=== PATIENT | female | born 1945 | race Caucasian/White ===

== ENCOUNTER 2020-12-15 15:32 | Emergency (ER) | payer MEDICARE, BC, OTHER ==
[2020-12-15] MEDS ORDERED: Sodium Chloride 0.9% 10 ML Syringe FLUSH PRN (16:24)
[2020-12-15] MEDS: Sodium Chloride 0.9% 2.5 ML Syringe FLUSH PRN ×2 (16:37→16:52)
[2020-12-15] MEDS ORDERED: diphenhydrAMINE 50 MG/ML SDV IVPUSH ONE (16:55)
[2020-12-15] MEDS ORDERED: methylPREDNISolone Sodium Succinate 125 MG/2 ML SDV IVPUSH ONE (16:55)
[2020-12-15 17:11] LABS: CARBON DIOXIDE,CO2 32.5 mmol/L (21.0-32.0); POTASSIUM,K 3.7 mmol/L (3.5-5.1)
[2020-12-15] MEDS ORDERED: Sodium Chloride 0.9% 1,000 ML IV ONE (17:35)
--- NOTE | 2020-12-15 17:52 | CT ---
Indication: Left lower quadrant pain Technique: Noncontrast CT abdomen and pelvis Please note that all CT scans at this facility use dose modulation, iterative reconstruction, and/or weight-based dosing when appropriate to reduce radiation dose to as low as reasonably achievable. Comparison: None Findings: Lung bases clear. Dense vascular calcifications. No intrahepatic mass. Somewhat nodular contour of the liver. Layering densities in the gallbladder. No biliary obstruction. Thickening of the adrenal glands. No hydronephrosis or renal stone. Spleen normal. Normal pancreas. Several subcentimeter retroperitoneal lymph nodes, likely of doubtful significance. The uterus is normal. No adnexal mass. Sigmoid diverticulosis. Faint stranding densities located within the posterior pelvic fat. No abscess or free fluid. No free air. No fracture. Impression: Sigmoid diverticulosis with faint ill-defined densities within the posterior pelvic fat suggesting mild sigmoid diverticulitis. Mild cirrhotic liver suspected. Cholelithiasis. Please note that all CT scans at this facility use dose modulation, iterative reconstruction, and/or weight-based dosing when appropriate to reduce radiation dose to as low as reasonably achievable. Dictated by Rodri Marks MD @ 12/15/2020 5:51:16 PM (Electronically Signed)
[2020-12-15] MEDS ORDERED: Ciprofloxacin 500 MG Tab PO STA (18:40)
[2020-12-15] MEDS ORDERED: metroNIDAZOLE 250 MG Tab PO ONE (18:40)
--- NOTE | 2020-12-15 19:07 | EDM.PDOC ---
ED HPI GENERAL MEDICAL PROBLEM - General Chief Complaint: Gastrointestinal Problem Stated Complaint: BOWEL ISSUES Time Seen by Provider: 12/15/20 16:07 Source of Information: Reports: Patient History Limitations: Reports: No Limitations - History of Present Illness INITIAL COMMENTS - FREE TEXT/NARRATIVE: HISTORY AND PHYSICAL: History of present illness: Patient is a 75-year-old female who presents emergency room today with concern of lower abdominal pain and off-and-on diarrhea and constipation over the past 3 days. Patient states her symptoms initially started as constipation but then started transitioning to watery/slimy diarrhea and states that she is having multiple episodes of this today. Patient denies any blood in her stool. Patient states she is having lower abdominal cramping associated with the diarrhea. Patient denies any abdominal surgeries. Patient does note that she feels hungry but states that she gets super bloated and gassy feeling if she eats so has not been drinking water appropriately and states that she does feel dehydrated. Patient states she does have a history of COPD, coronary artery disease status post stent, and hypertension. Patient denies any other symptoms or concerns. Patient denies fever, chills, chest pain, shortness of breath, or cough. Denies headache, neck stiff ness, change in vision, syncope, or near syncope. Denies nausea, vomiting, or dysuria. Has not noted any blood in urine or stool. Review of systems: As per history of present illness and below otherwise all systems reviewed and negative. Past medical history: As per history of present illness and as reviewed below otherwise noncontributory. Surgical history: As per history of present illness and as reviewed below otherwise noncontributory. Social history: See social history for further information Family history: As per history of present illness and as reviewed below otherwise noncontributory. Physical exam: General: Patient is alert, oriented, and in no acute distress. Patient sitting comfortably on exam table. Vitals stable and reviewed by me HEENT: Atraumatic, normocephalic, pupils equal and reactive bilaterally, negative for conjunctival pallor or scleral icterus, mucous membranes dry, TMs normal bilaterally, throat clear, neck supple, nontender, trachea midline. No drooling or trismus noted. No meningeal signs. No hot potato voice noted. Lungs: Clear to auscultation, breath sounds equal bilaterally, chest nontender. Heart: S1S2, regular rate and rhythm without overt murmur Abdomen: Soft, nondistended, mild lower abd tenderness. Negative for masses or hepatosplenomegaly. Negative for costovertebral tenderness. Pelvis: Stable nontender. Genitourinary: Deferred. Rectal: Deferred. Skin: Intact, warm, dry. No lesions or rashes noted. Extremities: Atraumatic, negative for cords or calf pain. Neurovascular unremarkable. Neuro: Awake, alert, oriented. Cranial nerves II through XII unremarkable. Cerebellum unremarkable. Motor and sensory unremarkable throughout. Exam nonfocal. Notes: Patient is a 75 year old who presents emergency room today with concern of constipation and intermittent diarrhea, nonbloody, and lower abdominal cramping/discomfort over the past 2 to 3 days. Upon arrival to the ED, patient is vitally stable and well-appearing on exam but does have a dry mouth and mild lower abdominal tenderness. Will obtain basic lab work, and abdominal pelvic CT scan without contrast. Patient does have an allergy to iodine. We will also obtain stool studies CBC shows mild decrease in red blood cells at 3.75, and hemoglobin of 11.5, and hematocrit 35.1, otherwise CBC unremarkable. CMP does show an elevation of creatinine at 1.9,(prior on file 1.2) BUN 35, and carbon dioxide of 32.5. Urinalysis does show trace protein, positive leukocyte Estrace with 1-3 red blood cells, 1-3 white blood cells, and rare bacteria. C. difficile is negative. Pending remainder stool send out Abdominal pelvic CT scan without contrast shows sigmoid diverticulosis with ill- defined density within the posterior pelvic fat suggesting mild sigmoid diverticulitis. Mild cirrhotic liver suspected. Cholelithiasis. All incidental findings of imaging today discussed with patient the importance to have this followed up with a primary care provider at a later date. Upon reevaluation of patient, she remains vitally stable and comfortable throughout stay in ED. Admission for observation was offered to patient but she declines at this time. All risks versus benefits discussed with patient and expresses understanding. Strict return precautions thoroughly discussed with patient. Discussed importance for follow-up with a primary care provider. Voices understanding and is agreeable to plan of care. Denies any further questions or concerns at this time. Diagnostics: CBC, CMP, lipase, UA, abdominal pelvic CT without contrast (patient allergy to iodine) stool culture/Shiga, ova and parasite, C. difficile Therapeutics: Normal saline, ciprofloxacin, metronidazole Prescription: Ciprofloxacin, metronidazole Impression: Diverticulitis Dehydration Abnormal renal function testing Plan: 1. Take medication as prescribed. You can alternate ibuprofen and Tylenol as directed for pain and discomfort. 2. Follow-up with primary care provider as discussed. Return to the ED as needed and as discussed. Definitive disposition and diagnosis as appropriate pending reevaluation and review of above. Abdomen Pain Score (Numeric/FACES): 6 - Related Data Allergies Allergy/AdvReac Type Severity Reaction Status Date / Time iodine Allergy unknown Verified 02/20/14 09:53 loratadine [From Claritin] Allergy unknown Verified 02/20/14 09:53 Home Meds: Home Meds Ciprofloxacin [Ciprofloxacin HCl] 500 mg PO BID 14 Days #28 tab 12/15/20 [Rx] metroNIDAZOLE [Flagyl] 500 mg PO Q8H 14 Days #42 tab 12/15/20 [Rx] Past Medical History Cardiovascular History: Reports: Angina, Hypertension Respiratory History: Reports: COPD Social & Family History - Tobacco Use Tobacco Use Status *Q: Former Tobacco User Used Tobacco, but Quit: Yes Month/Year Tobacco Last Used: - Caffeine Use Caffeine Use: Reports: None - Recreational Drug Use Recreational Drug Use: No ED ROS GENERAL - Review of Systems Review Of Systems: Comprehensive ROS is negative, except as noted in HPI. ED EXAM, GENERAL - Physical Exam Exam: See Below (See dictation) Course - Vital Signs Last Recorded V/S: Last Vital Signs Temp 95.9 F L 12/15/20 19:42 Pulse 53 L 12/15/20 19:42 Resp 16 12/15/20 19:42 BP 116/52 L 12/15/20 19:42 Pulse Ox 94 L 12/15/20 19:42 - Orders/Labs/Meds Orders: Active Orders 24 hr Category Date Time Status CULTURE URINE [MREF] Stat Lab 12/15/20 18:22 Received OVA & PARASITES BY IMMUNOASSAY [MREF] Stat Lab 12/15/20 17:02 Received STOOL CULTURE/SHIGA TOXIN [MREF] Stat Lab 12/15/20 17:02 Received Saline Lock Insert [OM.PC] Stat Oth 12/15/20 16:24 Ordered Labs: Laboratory Tests 09/06/21 09/06/21 09/06/21 Range/Units 16:40 16:40 17:02 WBC 6.23 (4.0-11.0) K/uL RBC 3.75 L (4.30-5.90) M/uL Hgb 11.5 L (12.0-16.0) g/dL Hct 35.1 L (36.0-46.0) % MCV 93.6 (80.0-98.0) fL MCH 30.7 (27.0-32.0) pg MCHC 32.8 (31.0-37.0) g/dL RDW Std Deviation 54.4 (28.0-62.0) fl RDW Coeff of Alena 16 H (11.0-15.0) % Plt Count 224 (150-400) K/uL MPV 9.70 (7.40-12.00) fL Neut % (Auto) 64.0 (48.0-80.0) % Lymph % (Auto) 23.8 (16.0-40.0) % [place] % (Auto) 9.3 (0.0-15.0) % Eos % (Auto) 2.7 (0.0-7.0) % Baso % (Auto) 0.2 (0.0-1.5) % Neut # (Auto) 4.0 (1.4-5.7) K/uL Lymph # (Auto) 1.5 (0.6-2.4) K/uL [place] # (Auto) 0.6 (0.0-0.8) K/uL Eos # (Auto) 0.2 (0.0-0.7) K/uL Baso # (Auto) 0.0 (0.0-0.1) K/uL Nucleated RBC % 0.0 /100WBC Nucleated RBCs # 0 K/uL Sodium 137 (136-145) mmol/L Potassium 3.7 (3.5-5.1) mmol/L Chloride 99 (98-107) mmol/L Carbon Dioxide 32.5 H (21.0-32.0) mmol/L BUN 35 H (7.0-18.0) mg/dL Creatinine 1.9 H (0.6-1.0) mg/dL Est Cr Clr Drug Dosing 20.86 mL/min Estimated GFR (MDRD) 25.9 ml/min Glucose 100 (74-106) mg/dL Calcium 9.1 (8.5-10.1) mg/dL Total Bilirubin 0.6 (0.2-1.0) mg/dL AST 25 (15-37) IU/L ALT 18 (14-63) IU/L Alkaline Phosphatase 64 (46-116) U/L Total Protein 8.0 (6.4-8.2) g/dL Albumin 3.5 (3.4-5.0) g/dL Globulin 4.5 H (2.6-4.0) g/dL Albumin/Globulin Ratio 0.8 L (0.9-1.6) Lipase 161 (73-393) U/L Urine Color Urine Appearance Urine pH (5.0-8.0) Ur Specific [place] (1.001-1.035) Urine Protein (NEGATIVE) mg/dL Urine Glucose (UA) (NEGATIVE) mg/dL Urine Ketones (NEGATIVE) mg/dL Urine Occult Blood (NEGATIVE) Urine Nitrite (NEGATIVE) Urine Bilirubin (NEGATIVE) Urine Urobilinogen (<2.0) EU/dL Ur Leukocyte Esterase (NEGATIVE) Urine RBC (0-2/HPF) Urine WBC (0-5/HPF) Ur Epithelial Cells (NONE-FEW) Urine Bacteria (NEGATIVE) SARS-CoV-2 RNA (OLIVIA) NEGATIVE (NEGATIVE) 12/15/20 Range/Units 18:22 WBC (4.0-11.0) K/uL RBC (4.30-5.90) M/uL Hgb (12.0-16.0) g/dL Hct (36.0-46.0) % MCV (80.0-98.0) fL MCH (27.0-32.0) pg MCHC (31.0-37.0) g/dL RDW Std Deviation (28.0-62.0) fl RDW Coeff of Alena (11.0-15.0) % Plt Count (150-400) K/uL MPV (7.40-12.00) fL Neut % (Auto) (48.0-80.0) % Lymph % (Auto) (16.0-40.0) % [place] % (Auto) (0.0-15.0) % Eos % (Auto) (0.0-7.0) % Baso % (Auto) (0.0-1.5) % Neut # (Auto) (1.4-5.7) K/uL Lymph # (Auto) (0.6-2.4) K/uL [place] # (Auto) (0.0-0.8) K/uL Eos # (Auto) (0.0-0.7) K/uL Baso # (Auto) (0.0-0.1) K/uL Nucleated RBC % /100WBC Nucleated RBCs # K/uL Sodium (136-145) mmol/L Potassium (3.5-5.1) mmol/L Chloride (98-107) mmol/L Carbon Dioxide (21.0-32.0) mmol/L BUN (7.0-18.0) mg/dL Creatinine (0.6-1.0) mg/dL Est Cr Clr Drug Dosing mL/min Estimated GFR (MDRD) ml/min Glucose (74-106) mg/dL Calcium (8.5-10.1) mg/dL Total Bilirubin (0.2-1.0) mg/dL AST (15-37) IU/L ALT (14-63) IU/L Alkaline Phosphatase (46-116) U/L Total Protein (6.4-8.2) g/dL Albumin (3.4-5.0) g/dL Globulin (2.6-4.0) g/dL Albumin/Globulin Ratio (0.9-1.6) Lipase (73-393) U/L Urine Color YELLOW Urine Appearance SLT CLOUDY Urine pH 7.0 (5.0-8.0) Ur Specific [place] 1.015 (1.001-1.035) Urine Protein TRACE H (NEGATIVE) mg/dL Urine Glucose (UA) NEGATIVE (NEGATIVE) mg/dL Urine Ketones NEGATIVE (NEGATIVE) mg/dL Urine Occult Blood TRACE-INTACT H (NEGATIVE) Urine Nitrite NEGATIVE (NEGATIVE) Urine Bilirubin NEGATIVE (NEGATIVE) Urine Urobilinogen 2.0 H (<2.0) EU/dL Ur Leukocyte Esterase SMALL H (NEGATIVE) Urine RBC 1-3 (0-2/HPF) Urine WBC 1-3 (0-5/HPF) Ur Epithelial Cells RARE (NONE-FEW) Urine Bacteria RARE (NEGATIVE) SARS-CoV-2 RNA (OLIVIA) (NEGATIVE) Meds: Medications Discontinued Medications Generic Name Dose Route Start Last Admin Trade Name Freq PRN Reason Stop Dose Admin Ciprofloxacin 500 mg 12/15/20 18:40 12/15/20 18:47 Ciprofloxacin 500 Mg Tab PO 12/15/20 18:41 500 mg NOW STA Administration Diphenhydramine HCl 50 mg 12/15/20 16:55 12/15/20 18:12 Diphenhydramine 50 Mg/Ml Sdv IVPUSH 12/15/20 16:56 Not Given ONETIME ONE Sodium Chloride 1,000 mls @ 999 mls/hr 12/15/20 17:35 12/15/20 18:20 Normal Saline IV 12/15/20 18:35 999 mls/hr STAT ONE Administration Methylprednisolone Sodium Succinate 125 mg 12/15/20 16:55 12/15/20 18:12 Methylprednisolone Sodium Succinate 125 Mg/2 Ml Sdv IVPUSH 12/15/20 16:56 Not Given ONETIME ONE Metronidazole 500 mg 12/15/20 18:40 12/15/20 18:47 Metronidazole 250 Mg Tab PO 12/15/20 18:41 500 mg ONETIME ONE Administration Sodium Chloride 10 ml 12/15/20 16:24 12/15/20 16:52 Sodium Chloride 0.9% 10 Ml Syringe FLUSH 10 ml ASDIRECTED PRN Administration Keep Vein Open Sodium Chloride 2.5 ml 12/15/20 16:24 12/15/20 16:52 Sodium Chloride 0.9% 2.5 Ml Syringe FLUSH 2.5 ml ASDIRECTED PRN Administration Keep Vein Open Departure - Departure Time of Disposition: 18:53 Disposition: Home, Self-Care 01 Clinical Impression: Diverticulitis, Dehydration, Abnormal kidney function - Discharge Information Prescriptions: Ciprofloxacin [Ciprofloxacin HCl] 500 mg PO BID 14 Days #28 tab metroNIDAZOLE [Flagyl] 500 mg PO Q8H 14 Days #42 tab Instructions: Diverticulitis Referrals: Darien Javed MD [Primary Care Provider] - Forms: ED Department Discharge Additional Instructions: The following information is given to patients seen in the emergency department who are being discharged to home. This information is to outline your options for follow-up care. We provide all patients seen in our emergency department with a follow-up referral. The need for follow-up, as well as the timing and circumstances, are variable depending upon the specifics of your emergency department visit. If you don't have a primary care physician on staff, we will provide you with a referral. We always advise you to contact your personal physician following an emergency department visit to inform them of the circumstance of the visit and for follow-up with them and/or the need for any referrals to a consulting specialist. The emergency department will also refer you to a specialist when appropriate. This referral assures that you have the opportunity for follow-up care with a specialist. All of these measure are taken in an effort to provide you with optimal care, which includes your follow-up. Under all circumstances we always encourage you to contact your private physician who remains a resource for coordinating your care. When calling for follow-up care, please make the office aware that this follow-up is from your recent emergency room visit. If for any reason you are refused follow-up, please contact the [facility] Emergency Department at and asked to speak to the emergency department charge nurse. [facility] [address] [place] [id number] [facility] [address] [place] [id number] 1. Take medication as prescribed. You can alternate ibuprofen and Tylenol as directed for pain and discomfort. 2. Follow-up with a primary care provider as discussed. Return to the ED as needed and as discussed. Sepsis Event Note (ED) - Focused Exam Vital Signs: Vital Signs Temp Pulse Resp BP Pulse Ox 12/15/20 19:42 95.9 F L 53 L 16 116/52 L 94 L 12/15/20 19:12 96.2 F L 61 18 124/44 L 97 12/15/20 18:37 60 16 137/40 L 97 12/15/20 15:54 97.9 F 58 L 18 115/56 L 94 L - My Orders Last 24 Hours: My Active Orders 12/15/20 16:24 Saline Lock Insert [OM.PC] Stat 12/15/20 17:02 OVA & PARASITES BY IMMUNOASSAY [MREF] Stat STOOL CULTURE/SHIGA TOXIN [MREF] Stat 12/15/20 18:22 CULTURE URINE [MREF] Stat - Assessment/Plan Last 24 Hours: My Active Orders 12/15/20 16:24 Saline Lock Insert [OM.PC] Stat 12/15/20 17:02 OVA & PARASITES BY IMMUNOASSAY [MREF] Stat STOOL CULTURE/SHIGA TOXIN [MREF] Stat 12/15/20 18:22 CULTURE URINE [MREF] Stat
== END 2020-12-15 19:46 | disposition home or self-care (01) ==
LOC: MW.ED 15:32
DX: K57.32 Diverticulitis of large intestine without perforation or abscess without bleeding (principal); E86.0 Dehydration; R94.4 Abnormal results of kidney function studies; I10 Essential (primary) hypertension; J44.9 Chronic obstructive pulmonary disease, unspecified; Z87.891 Personal history of nicotine dependence; Z88.8 Allergy status to other drugs, medicaments and biological substances; Z20.822 Contact with and (suspected) exposure to COVID-19
CPT/HCPCS: 36415; 74176; 80053; 81001; 83690; 85025; 87045; 87046; 87086; 87324; 87328; 87329; 87449; 87899; 99284; A9270; J7030; U0002

== ENCOUNTER 2020-12-18 13:21 | Emergency (ER) | payer MEDICARE, BC, OTHER ==
[2020-12-18] MEDS ORDERED: Sodium Chloride 0.9% 1,000 ML IV ONE (15:06)
--- NOTE | 2020-12-18 15:13 | EDM.PDOC ---
ED HPI GENERAL MEDICAL PROBLEM - General Chief Complaint: Gastrointestinal Problem Stated Complaint: SYMPTOMS HAVE GOTTEN WORSE Time Seen by Provider: 12/18/20 13:25 Source of Information: Reports: Patient History Limitations: Reports: No Limitations - History of Present Illness INITIAL COMMENTS - FREE TEXT/NARRATIVE: HISTORY AND PHYSICAL: History of present illness: Patient is a 75-year-old female who presents to the emergency room with complaints of abdominal cramping, diarrhea and dehydration. She states for the past 1 week she has had low abdominal pain, as many as 10 loose stools per day, nausea, decreased appetite and concerned she has dehydration. She was seen in the emergency room earlier this week and diagnosed with diverticulitis. She was placed on Cipro and Flagyl PO. She has been tolerating these medications but states she does not feel any improvement, concerned her symptoms may be an adverse reaction to the medication. She is concerned as her loose stools are now "straight water...anytime I eat anything it goes straight through me". She did call her primary care provider and spoke with Dr. Alberto's nurse who recommended she come to the emergency room for evaluation. Patient denies any fever, chills, headache, change in vision, syncope or near syncope. Denies any chest pain, back pain, shortness of breath or cough. Denies any vomiting, const ipation or dysuria. Has not noted any blood in urine or stool. Patient has been eating and drinking appropriately. Review of systems: As per history of present illness and below otherwise all systems reviewed and negative. Past medical history: As per history of present illness and as reviewed below otherwise noncontributory. Surgical history: As per history of present illness and as reviewed below otherwise noncontributory. Social history: See social history for further information Family history: As per history of present illness and as reviewed below otherwise noncontributory. Physical exam: General: Well developed and well nourished. Alert and orientated x 3. Nontoxic in appearance and in no acute distress. Vital signs are stable and have been reviewed by me. Nursing notes were reviewed. HEENT: Atraumatic, normocephalic, pupils equal and reactive bilaterally, negative for conjunctival pallor or scleral icterus, mucous membranes moist, TMs normal bilaterally, throat clear, neck supple, nontender, trachea midline. No drooling or trismus noted. No meningeal signs. No hot potato voice noted. Lungs: Clear to auscultation bilaterally. No wheezes, rales, or rhonchi. Chest nontender. Normal work of breathing, no accessory muscles used. Heart: S1S2, regular rate and rhythm without overt murmur, gallops, or rubs. No JVD. No peripheral edema Abdomen: Soft, nondistended, nontender. Normoactive bowel sounds. Negative for masses or costovertebral tenderness. Skin: Intact, warm, dry. No lesions or rashes noted. Hematologic: No petechiae or purpra. Mucosa appropriate color and normal nail bed color and refill. Extremities: Atraumatic, moves all extremities per self without difficulty or deficits, negative for cords or calf pain. Neurovascular unremarkable. Neuro: Awake, alert, oriented. Cranial nerves II through XII unremarkable. Cerebellum unremarkable. Motor and sensory unremarkable throughout. Exam nonfocal. Psychiatric: Mood and affect are appropriate. Normal thought process. Answering questions appropriately. Please note that the patient was seen and evaluated during the 2019 SARS-CoV-2 novel coronavirus pandemic period. Community viral transmission is ongoing at time of this encounter and the emergency department is operating under pandemic response procedures. Medical Decision Making: Patient is a 75-year-old female who presents to the emergency room with a friend with concern she is having an adverse reaction to the Cipro and Flagyl she was placed on for diverticulitis. She states she came into the emergency room a few days ago for lower abdominal pain, nausea and diarrhea. She states her symptoms have improved but she feels like she is not tolerating the antibiotics as she has increased cramping and watery stools. She is agreeable to basic lab work at this time and obtaining a stool sample. She did provide a very small stool sample that was sent to the lab although was told it was not sufficient quantity. Patient's labs improved since her previous ER visit. I did give her some Bentyl, she did have relief with the abdominal cramping with this medication. We discussed continuing her Cipro and Flagyl versus switching her to Augmentin. She is adamant about switching to Augmentin at this time. She does have an appointment with Dr. Javed in the next week. Encouraged her to keep this appointment. I have talked with the patient about today's findings, in addition to providing specific details for plan of care. Reassessment at the time of disposition demonstrates that the patient is in no acute distress. The patient is stable for discharge, counseling was provided and we discussed in great detail signs and symptoms that would prompt them to return to the Emergency Department. Medication, follow up and supportive care measures were reviewed and discussed. Voices understanding and is agreeable to plan of care. Denies any further questions or concerns at this time. Diagnostics: CBC, CMP, Stool Studies, [employer]: IV fluids, Zofran, Bentyl Prescription: Augmentin, Bentyl Impression: Diverticulitis Plan: 1. You were evaluated today on an emergent basis. Your lab work is improved. Stool studies have not all returned yet. We switched your antibiotic to Augmentin three x daily (since you were not tolerating the Cipro and Flagyl). Stop taking the Cipro and Flagyl. 2. BRAT diet (bananas, rice, applesauce, toast) and advance as tolerated. Increase your fluids to prevent dehydration. Bentyl for abdominal cramping, can take up to three x daily - take only as needed. You can alternate Tylenol and ib uprofen as needed for pain and fever management. 3. We encourage you to follow up with your primary care provider and/or general surgeon for re-evaluation and further care/management. 4. If your symptoms should worsen, new symptoms develop or any of the signs and symptoms we discussed should arise please return to the emergency room or call 911 (if needed). Definitive disposition and diagnosis as appropriate pending reevaluation and review of above. - Related Data Allergies Allergy/AdvReac Type Severity Reaction Status Date / Time iodine Allergy unknown Verified 12/18/20 13:59 loratadine [From Claritin] Allergy unknown Verified 12/18/20 13:59 Home Meds: Home Meds Ciprofloxacin [Ciprofloxacin HCl] 500 mg PO BID 14 Days #28 tab 12/15/20 [Rx] metroNIDAZOLE [Flagyl] 500 mg PO Q8H 14 Days #42 tab 12/15/20 [Rx] Amoxicillin/Clavulanate K [Augmentin 875-125 MG] 1 tab PO TID #30 tab 12/18/20 [Rx] Dicyclomine [Bentyl] 20 mg PO TID PRN #12 tab 12/18/20 [Rx] Past Medical History Cardiovascular History: Reports: Angina, Hypertension Respiratory History: Reports: COPD - Infectious Disease History Infectious Disease History: Reports: None Social & Family History - Tobacco Use Tobacco Use Status *Q: Never Tobacco User - Caffeine Use Caffeine Use: Reports: None - Recreational Drug Use Recreational Drug Use: No ED ROS GENERAL - Review of Systems Review Of Systems: Comprehensive ROS is negative, except as noted in HPI. ED EXAM, GI/ABD - Physical Exam Exam: See Below (See dictation) Course - Vital Signs Last Recorded V/S: Last Vital Signs Temp 98.2 F 12/18/20 14:00 Pulse 62 12/18/20 14:00 Resp 16 12/18/20 14:00 BP 119/44 L 12/18/20 14:00 Pulse Ox 95 12/18/20 14:00 - Orders/Labs/Meds Orders: Active Orders 24 hr Category Date Time Status C DIFFICILE AG/TOXIN W/REFLEX [RM] Stat Lab 12/18/20 13:33 Received CULTURE URINE [MREF] Stat Lab 12/18/20 15:32 Received OVA & PARASITES BY IMMUNOASSAY [MREF] Stat Lab 12/18/20 15:06 Ordered STOOL CULTURE/SHIGA TOXIN [MREF] Stat Lab 12/18/20 15:06 Ordered Labs: Laboratory Tests 12/18/20 12/18/20 12/18/20 Range/Units 15:32 15:32 15:32 WBC 5.73 (4.0-11.0) K/uL RBC 3.76 L (4.30-5.90) M/uL Hgb 11.5 L (12.0-16.0) g/dL Hct 35.0 L (36.0-46.0) % MCV 93.1 (80.0-98.0) fL MCH 30.6 (27.0-32.0) pg MCHC 32.9 (31.0-37.0) g/dL RDW Std Deviation 53.8 (28.0-62.0) fl RDW Coeff of Alena 16 H (11.0-15.0) % Plt Count 237 (150-400) K/uL MPV 9.60 (7.40-12.00) fL Neut % (Auto) 66.0 (48.0-80.0) % Lymph % (Auto) 19.2 (16.0-40.0) % Tama % (Auto) 11.0 (0.0-15.0) % Eos % (Auto) 3.5 (0.0-7.0) % Baso % (Auto) 0.3 (0.0-1.5) % Neut # (Auto) 3.8 (1.4-5.7) K/uL Lymph # (Auto) 1.1 (0.6-2.4) K/uL Tama # (Auto) 0.6 (0.0-0.8) K/uL Eos # (Auto) 0.2 (0.0-0.7) K/uL Baso # (Auto) 0.0 (0.0-0.1) K/uL Nucleated RBC % 0.0 /100WBC Nucleated RBCs # 0 K/uL Sodium 137 (136-145) mmol/L Potassium 3.8 (3.5-5.1) mmol/L Chloride 102 (98-107) mmol/L Carbon Dioxide 28.2 (21.0-32.0) mmol/L BUN 24 H (7.0-18.0) mg/dL Creatinine 1.8 H (0.6-1.0) mg/dL Est Cr Clr Drug Dosing 22.02 mL/min Estimated GFR (MDRD) 27.6 ml/min Glucose 101 (74-106) mg/dL Calcium 9.0 (8.5-10.1) mg/dL Magnesium 1.8 (1.8-2.4) mg/dL Total Bilirubin 0.4 (0.2-1.0) mg/dL AST 28 (15-37) IU/L ALT 17 (14-63) IU/L Alkaline Phosphatase 55 (46-116) U/L Total Protein 7.5 (6.4-8.2) g/dL Albumin 3.3 L (3.4-5.0) g/dL Globulin 4.2 H (2.6-4.0) g/dL Albumin/Globulin Ratio 0.8 L (0.9-1.6) Urine Color YELLOW Urine Appearance CLEAR Urine pH 6.0 (5.0-8.0) Ur Specific [place] >= 1.030 (1.001-1.035) Urine Protein TRACE H (NEGATIVE) mg/dL Urine Glucose (UA) NEGATIVE (NEGATIVE) mg/dL Urine Ketones NEGATIVE (NEGATIVE) mg/dL Urine Occult Blood NEGATIVE (NEGATIVE) Urine Nitrite NEGATIVE (NEGATIVE) Urine Bilirubin NEGATIVE (NEGATIVE) Urine Urobilinogen 0.2 (<2.0) EU/dL Ur Leukocyte Esterase TRACE H (NEGATIVE) Urine RBC 0-2 (0-2/HPF) Urine WBC 1-3 (0-5/HPF) Ur Epithelial Cells FEW (NONE-FEW) Urine Bacteria FEW (NEGATIVE) Urine Mucus LIGHT (NONE-MOD) Urinalysis Comment Meds: Medications Discontinued Medications Generic Name Dose Route Start Last Admin Trade Name Freq PRN Reason Stop Dose Admin Dicyclomine HCl 10 mg 12/18/20 15:21 12/18/20 15:39 Dicyclomine 10 Mg Cap PO 12/18/20 15:22 10 mg ONETIME ONE Administration Sodium Chloride 1,000 mls @ 999 mls/hr 12/18/20 15:06 12/18/20 15:39 Normal Saline IV 12/18/20 16:06 999 mls/hr STAT ONE Administration Departure - Departure Time of Disposition: 16:59 Disposition: Home, Self-Care 01 Clinical Impression: Diverticulitis - Discharge Information Prescriptions: Amoxicillin/Clavulanate K [Augmentin 875-125 MG] 1 tab PO TID #30 tab Dicyclomine [Bentyl] 20 mg PO TID PRN #12 tab PRN Reason: Abdominal Pain Instructions: Diverticulitis, [id number] Referrals: PCP,None [Primary Care Provider] - Forms: ED Department Discharge Additional Instructions: The following information is given to patients seen in the emergency department who are being discharged to home. This information is to outline your options for follow-up care. We provide all patients seen in our emergency department with a follow-up referral. The need for follow-up, as well as the timing and circumstances, are variable depending upon the specifics of your emergency department visit. If you don't have a primary care physician on staff, we will provide you with a referral. We always advise you to contact your personal physician following an emergency department visit to inform them of the circumstance of the visit and for follow-up with them and/or the need for any referrals to a consulting specialist. The emergency department will also refer you to a specialist when appropriate. This referral assures that you have the opportunity for follow-up care with a specialist. All of these measure are taken in an effort to provide you with optimal care, which includes your follow-up. Under all circumstances we always encourage you to contact your private physician who remains a resource for coordinating your care. When calling for follow-up care, please make the office aware that this follow-up is from your recent emergency room visit. If for any reason you are refused follow-up, please contact the [facility] Emergency Department at and asked to speak to the emergency department charge nurse. [facility] [address] [place] [id number] [address] Thank you for choosing the [facility] emergency department in [place] for your medical needs today. It was a pleasure caring for you. Today you were seen in the emergency department for abdominal pain. 1. You were evaluated today on an emergent basis. Your blood work is improved, no concerns for significant dehydration. Stool studies have not all returned yet. We switched your antibiotic to Augmentin three x daily (since you were not tolerating the Cipro and Flagyl). Stop taking the Cipro and Flagyl. 2. BRAT diet (bananas, rice, applesauce, toast) and advance as tolerated. Increase your fluids to prevent dehydration. Bentyl for abdominal cramping, can take up to three x daily - take only as needed. You can alternate Tylenol and ibuprofen as needed for pain and fever management. 3. We encourage you to follow up with your primary care provider and/or general surgeon for re-evaluation and further care/management. 4. If your symptoms should worsen, new symptoms develop or any of the signs and symptoms we discussed should arise please return to the emergency room or call 911 (if needed). Sepsis Event Note (ED) - Focused Exam Vital Signs: Vital Signs Temp Pulse Resp BP Pulse Ox 12/18/20 14:00 98.2 F 62 16 119/44 L 95 - My Orders Last 24 Hours: My Active Orders 12/18/20 13:33 C DIFFICILE AG/TOXIN W/REFLEX [RM] Stat 12/18/20 15:06 OVA & PARASITES BY IMMUNOASSAY [MREF] Stat STOOL CULTURE/SHIGA TOXIN [MREF] Stat 12/18/20 15:32 CULTURE URINE [MREF] Stat - Assessment/Plan Last 24 Hours: My Active Orders 12/18/20 13:33 C DIFFICILE AG/TOXIN W/REFLEX [RM] Stat 12/18/20 15:06 OVA & PARASITES BY IMMUNOASSAY [MREF] Stat STOOL CULTURE/SHIGA TOXIN [MREF] Stat 12/18/20 15:32 CULTURE URINE [MREF] Stat
[2020-12-18] MEDS ORDERED: Dicyclomine 10 MG Cap PO ONE (15:21)
[2020-12-18 16:07] LABS: CARBON DIOXIDE,CO2 28.2 mmol/L (21.0-32.0); POTASSIUM,K 3.8 mmol/L (3.5-5.1)
== END 2020-12-18 17:11 | disposition home or self-care (01) ==
LOC: MW.ED 13:21
DX: K57.92 Diverticulitis of intestine, part unspecified, without perforation or abscess without bleeding (principal); I10 Essential (primary) hypertension; J44.9 Chronic obstructive pulmonary disease, unspecified; Z88.8 Allergy status to other drugs, medicaments and biological substances; Z79.899 Other long term (current) drug therapy
CPT/HCPCS: 36415; 80053; 81001; 83735; 85025; 87086; 87324; 99284; A9270; J7030

== ENCOUNTER 2021-10-17 11:59 | Emergency (ER) | payer MEDICARE, BC ==
[2021-10-17] MEDS ORDERED: Sodium Chloride 0.9% 10 ML Syringe FLUSH PRN (12:05)
[2021-10-17] MEDS ORDERED: Sodium Chloride 0.9% 2.5 ML Syringe FLUSH PRN (12:05)
[2021-10-17 12:47] LABS: CARBON DIOXIDE,CO2 29.8 mmol/L (21.0-32.0); POTASSIUM,K 4.1 mmol/L (3.5-5.1)
[2021-10-17] MEDS ORDERED: methylPREDNISolone Sodium Succinate 125 MG/2 ML SDV IVPUSH ONE (13:08)
[2021-10-17] MEDS ORDERED: diphenhydrAMINE 50 MG/ML SDV IVPUSH ONE (13:08)
[2021-10-17] MEDS ORDERED: Iopamidol 755 MG/ML 500 ML Multipack Bottle IVPUSH STA (17:04)
== END 2021-10-17 15:53 | disposition home or self-care (01) ==
LOC: MW.ED 11:59
DX: R07.2 Precordial pain (principal); K59.00 Constipation, unspecified; J44.9 Chronic obstructive pulmonary disease, unspecified; I10 Essential (primary) hypertension; Z91.041 Radiographic dye allergy status; Z88.8 Allergy status to other drugs, medicaments and biological substances; Z20.822 Contact with and (suspected) exposure to COVID-19
CPT/HCPCS: 36415; 71045; 71275; 80053; 84484; 85025; 85379; 93005; 96374; 96375; 99285; J1200; J2930; J3490; Q9967; U0002

== ENCOUNTER 2021-12-15 10:08 | Emergency (ER) | payer MEDICARE, BC ==
[2021-12-15] MEDS ORDERED: Sodium Chloride 0.9% 2.5 ML Syringe FLUSH PRN (10:15)
[2021-12-15] MEDS ORDERED: Sodium Chloride 0.9% 10 ML Syringe FLUSH PRN (10:15)
[2021-12-15] MEDS ORDERED: methylPREDNISolone Sodium Succinate 125 MG/2 ML SDV IVPUSH ONE (10:48)
[2021-12-15] MEDS ORDERED: Ketorolac 30 MG/ML SDV IVPUSH ONE (10:48)
[2021-12-15] MEDS ORDERED: Albuterol/Ipratropium 3.0-0.5 MG/3 ML Neb Soln NEB ONE (10:48)
[2021-12-15] MEDS ORDERED: Acetaminophen 500 MG Tab PO ONE (10:49)
[2021-12-15 11:34] LABS: CARBON DIOXIDE,CO2 22.7 mmol/L (21.0-32.0); POTASSIUM,K 4.4 mmol/L (3.5-5.1)
[2021-12-15 11:47] LABS: CORONAVIRUS COVID-19 NAA NEGATIVE (NEGATIVE); INFLUENZA A NAA NEGATIVE (NEGATIVE); INFLUENZA B NAA NEGATIVE (NEGATIVE)
[2021-12-15] MEDS ORDERED: Morphine 2 MG/ML SYRINGE IVPUSH ONE (12:00)
[2021-12-15] MEDS ORDERED: Morphine 4 MG/ML VIAL IVPUSH ONE (13:01)
== END 2021-12-15 14:16 | disposition home or self-care (01) ==
LOC: MW.ED 10:08
DX: R91.8 Other nonspecific abnormal finding of lung field (principal); M25.512 Pain in left shoulder; I10 Essential (primary) hypertension; E11.9 Type 2 diabetes mellitus without complications; Z88.8 Allergy status to other drugs, medicaments and biological substances; Z87.891 Personal history of nicotine dependence; Z79.899 Other long term (current) drug therapy; Z20.822 Contact with and (suspected) exposure to COVID-19
CPT/HCPCS: 0240U; 36415; 70450; 71046; 71250; 72125; 80053; 84484; 85025; 85379; 93005; 94640; 96374; 96375; 96376; 99284; A9270; J1885; J2270; J2930; J3490; J7620-GY

== ENCOUNTER 2022-01-06 18:55 | Emergency (ER) | payer MEDICARE, BC ==
[2022-01-06] MEDS ORDERED: Sodium Chloride 0.9% 10 ML Syringe FLUSH PRN (19:59)
[2022-01-06] MEDS ORDERED: Sodium Chloride 0.9% 2.5 ML Syringe FLUSH PRN (19:59)
[2022-01-06] MEDS ORDERED: Ondansetron 4 MG/2 ML SDV IVPUSH ONE (20:01)
[2022-01-06] MEDS ORDERED: Morphine 2 MG/ML SYRINGE IVPUSH ONE (20:01)
[2022-01-06 20:26] LABS: CARBON DIOXIDE,CO2 29.3 mmol/L (21.0-32.0); POTASSIUM,K 4.1 mmol/L (3.5-5.1)
[2022-01-06] MEDS ORDERED: HYDROmorphone 1 MG/ML Syringe IVPUSH ONE (23:49)
== END 2022-01-07 00:25 | disposition home or self-care (01) ==
LOC: MW.ED 18:55
DX: M54.12 Radiculopathy, cervical region (principal); E86.0 Dehydration; E11.9 Type 2 diabetes mellitus without complications; J44.9 Chronic obstructive pulmonary disease, unspecified; I10 Essential (primary) hypertension; Z91.14 Patient's other noncompliance with medication regimen; Z88.8 Allergy status to other drugs, medicaments and biological substances; Z79.899 Other long term (current) drug therapy
CPT/HCPCS: 36415; 70450; 71045; 72125; 80053; 81001; 82803; 82947; 83735; 84484; 85025; 93005; 96374; 96375; 99284; J1170; J2270; J2405; 93010

== ENCOUNTER 2022-01-07 12:00 | Inpatient (IN) | payer MEDICARE, BC ==
[~2022-01-07 12:00] MED LIST: Gabapentin 300 MG Cap PO ONE
[2022-01-07] MEDS ORDERED: Ketorolac 30 MG/ML SDV IM ONE (12:23)
[2022-01-07] MEDS ORDERED: fentaNYL 50 MCG/ML SDV IM ONE (12:23)
[2022-01-07] MEDS ORDERED: Ondansetron 4 MG/2 ML SDV IVPUSH PRN (16:49)
[2022-01-07] MEDS ORDERED: Sodium Chloride 0.9% 2.5 ML Syringe FLUSH PRN (16:49)
[2022-01-07] MEDS ORDERED: Sodium Chloride 0.9% 10 ML Syringe FLUSH PRN (16:49)
[2022-01-07] MEDS ORDERED: predniSONE 20 MG Tab PO ONE (16:53)
[2022-01-07] MEDS ORDERED: Glucagon,Human Recombinant 1 MG Vial IM PRN (16:55)
[2022-01-07] MEDS ORDERED: 50% Dextrose in Water 50 ML Syringe IVPUSH PRN (16:55)
[2022-01-07] MEDS: Acetaminophen 325 MG Tab PO SCH ×2 (18:23→20:39)
[2022-01-07] MEDS: Lidocaine 5% 700 MG Patch TRDERM SCH (18:28)
[2022-01-07] MEDS: Insulin Aspart 100 Units/ML 3 ML Pen SUBCUT SCH (18:33)
[2022-01-07] MEDS: Rosuvastatin 10 MG Tab PO SCH ×2 (20:34→20:45)
[2022-01-07] MEDS: Melatonin 3 MG Tab PO PRN (22:04)
[2022-01-08] MEDS: Acetaminophen 325 MG Tab PO SCH ×6 (01:23→21:00)
[2022-01-08] MEDS: Pantoprazole 40 MG Tab.CR PO SCH (06:31)
[2022-01-08] MEDS: Polyethylene Glycol 3350 Powder 17 GM Packet PO PRN (06:31)
[2022-01-08] MEDS: Insulin Aspart 100 Units/ML 3 ML Pen SUBCUT SCH ×3 (06:34→16:47)
[2022-01-08 07:18] LABS: POTASSIUM,K 4.5 mmol/L (3.5-5.1)
[2022-01-08] MEDS: Losartan 50 MG Tab PO SCH (08:26)
[2022-01-08] MEDS: Rosuvastatin 10 MG Tab PO SCH (08:28)
[2022-01-08] MEDS: predniSONE 20 MG Tab PO SCH (08:32)
[2022-01-08] MEDS: Gabapentin 300 MG Cap PO SCH ×3 (08:32→22:37)
[2022-01-08] MEDS ORDERED: Gabapentin 300 MG Cap PO SCH (09:45)
[2022-01-08] MEDS ORDERED: Atenolol 25 MG Tab PO ONE (10:13)
[2022-01-08] MEDS ORDERED: Atenolol 50 MG Tab PO ONE (10:38)
[2022-01-08] MEDS: Lidocaine 5% 700 MG Patch TRDERM SCH (16:28)
[2022-01-08] MEDS: Ezetimibe 10 MG Tab PO SCH (20:56)
[2022-01-08] MEDS: Melatonin 3 MG Tab PO PRN (22:38)
[2022-01-09] MEDS: Acetaminophen 325 MG Tab PO SCH ×6 (02:00→20:32)
[2022-01-09 06:17] LABS: POTASSIUM,K 3.9 mmol/L (3.5-5.1)
[2022-01-09] MEDS: Pantoprazole 40 MG Tab.CR PO SCH (06:30)
[2022-01-09] MEDS: Insulin Aspart 100 Units/ML 3 ML Pen SUBCUT SCH ×3 (06:30→16:20)
[2022-01-09] MEDS: Losartan 50 MG Tab PO SCH (08:10)
[2022-01-09] MEDS: Rosuvastatin 10 MG Tab PO SCH (08:10)
[2022-01-09] MEDS: predniSONE 20 MG Tab PO SCH (08:10)
[2022-01-09] MEDS: Gabapentin 300 MG Cap PO SCH ×2 (08:23→20:31)
[2022-01-09] MEDS ORDERED: Rosuvastatin 10 MG Tab PO ONE (11:45)
[2022-01-09] MEDS: Levothyroxine 125 MCG Tab PO SCH (12:01)
[2022-01-09] MEDS: Lidocaine 5% 700 MG Patch TRDERM SCH (16:02)
[2022-01-09] MEDS: Polyethylene Glycol 3350 Powder 17 GM Packet PO PRN (17:15)
[2022-01-09] MEDS: Ezetimibe 10 MG Tab PO SCH (20:31)
[2022-01-09] MEDS: Melatonin 3 MG Tab PO PRN (22:38)
[2022-01-10] MEDS: Acetaminophen 325 MG Tab PO SCH ×6 (00:14→20:36)
[2022-01-10] MEDS: Pantoprazole 40 MG Tab.CR PO SCH (06:42)
[2022-01-10] MEDS: Levothyroxine 125 MCG Tab PO SCH (06:42)
[2022-01-10] MEDS: Insulin Aspart 100 Units/ML 3 ML Pen SUBCUT SCH ×3 (07:09→16:40)
[2022-01-10] MEDS: predniSONE 20 MG Tab PO SCH (08:00)
[2022-01-10] MEDS: Gabapentin 300 MG Cap PO SCH ×2 (08:01→20:37)
[2022-01-10] MEDS: Losartan 50 MG Tab PO SCH (08:01)
[2022-01-10] MEDS ORDERED: cefTRIAXone 1 GM in Sodium Chloride 0.9% 50 ML IV SCH (08:45)
[2022-01-10] MEDS ORDERED: Rosuvastatin 10 MG Tab PO SCH (09:00)
[2022-01-10] MEDS: Lidocaine 5% 700 MG Patch TRDERM SCH (16:28)
[2022-01-10] MEDS: Ezetimibe 10 MG Tab PO SCH (20:37)
[2022-01-10] MEDS: Melatonin 3 MG Tab PO PRN (22:40)
[2022-01-11] MEDS: Acetaminophen 325 MG Tab PO SCH (00:01)
[2022-01-11] MEDS ORDERED: LORazepam 1 MG Tab ONE (11:54)
[2022-01-11] MEDS ORDERED: Cefepime 50 ML ONE (16:41)
[2022-01-11] MEDS ORDERED: Lidocaine 5% 700 MG Patch ONE (16:49)
[2022-01-11] MEDS ORDERED: Acetaminophen 325 MG Tab ONE ×2 (16:50→22:05)
[2022-01-11] MEDS ORDERED: Vancomycin 1 GM SDV ONE (18:06)
[2022-01-11] MEDS ORDERED: Sodium Chloride 0.9% 250 ML ONE (18:08)
[2022-01-11] MEDS ORDERED: Ezetimibe 10 MG Tab ONE (21:59)
[2022-01-11] MEDS ORDERED: Gabapentin 300 MG Cap ONE (22:01)
[2022-01-11] MEDS ORDERED: traZODone 50 MG Tab ONE (22:02)
[2022-01-12] MEDS ORDERED: Acetaminophen 325 MG Tab ONE ×3 (01:52→13:06)
[2022-01-12] MEDS ORDERED: Sodium Chloride 0.9% 50 ML ONE (05:06)
[2022-01-12] MEDS ORDERED: Pantoprazole 40 MG Tab.CR ONE (06:37)
[2022-01-12] MEDS ORDERED: Levothyroxine 125 MCG Tab ONE (06:38)
[2022-01-12] MEDS ORDERED: Rosuvastatin 10 MG Tab ONE (08:19)
[2022-01-12] MEDS ORDERED: Losartan 50 MG Tab ONE (08:20)
[2022-01-12] MEDS ORDERED: Gabapentin 300 MG Cap ONE (08:20)
[2022-01-12] MEDS ORDERED: Morphine 2 MG/ML SYRINGE ONE ×2 (10:41→14:39)
[2022-01-12] MEDS ORDERED: LORazepam 1 MG Tab ONE (14:39)
[2022-01-12] MEDS ORDERED: Sodium Chloride 0.9% 100 ML ONE (15:09)
[2022-02-12 14:21] LABS: CARBON DIOXIDE,CO2 30.5 mmol/L (21.0-32.0); POTASSIUM,K 3.9 mmol/L (3.5-5.1)
== END 2022-01-12 15:30 | disposition home or self-care (01) | DRG 92 ==
LOC: MW.ED 12:00 → MW.MS 15:48 → OBSVTOIN 01-08 16:43 → MW.MS 01-08 16:44 → MW.ZCENSUS 01-11 13:51
PROVIDERS: ADMIT Internal Medicine; ATTEND Internal Medicine
DX: R26.81 Unsteadiness on feet (principal); N39.0 Urinary tract infection, site not specified; M25.512 Pain in left shoulder; R26.89 Other abnormalities of gait and mobility; R53.81 Other malaise; E11.9 Type 2 diabetes mellitus without complications; I10 Essential (primary) hypertension; Z20.822 Contact with and (suspected) exposure to COVID-19; J44.9 Chronic obstructive pulmonary disease, unspecified; M54.2 Cervicalgia; F32.A Depression, unspecified; E03.9 Hypothyroidism, unspecified; E78.00 Pure hypercholesterolemia, unspecified; D64.9 Anemia, unspecified; M54.12 Radiculopathy, cervical region; R29.898 Other symptoms and signs involving the musculoskeletal system; I25.118 Atherosclerotic heart disease of native coronary artery with other forms of angina pectoris; F41.1 Generalized anxiety disorder; Z79.899 Other long term (current) drug therapy; I25.10 Atherosclerotic heart disease of native coronary artery without angina pectoris; Z88.8 Allergy status to other drugs, medicaments and biological substances; R91.8 Other nonspecific abnormal finding of lung field; E11.40 Type 2 diabetes mellitus with diabetic neuropathy, unspecified; E78.5 Hyperlipidemia, unspecified; Z79.52 Long term (current) use of systemic steroids
CPT/HCPCS: 36415; 80048; 81001; 82607; 82947 ×4; 83735; 84443; 85025; 87086; 87088; 87186; 97116; 97163; A9270 ×21; J1815; J1885; J3010; U0002; 72128; 72128-26; 72156; 72156-26; 73200-26-LT; 73200-LT; 80053; 97112-GP; 97165-GO; 97530-GP; 99284; J0692; J0696; J2270; J3370; J7050